=== PATIENT | male | born 1995 | race Caucasian/White ===

== ENCOUNTER 2016-10-17 12:25 | Emergency (ER) | payer MEDICAID ==
[~2016-10-17] VITALS: Ht 182.9 cm; Wt 86.4 kg
[2016-10-17 12:46] LABS: BASOPHILS % (AUTO) 1 % (0-2); EOSINOPHILS # (AUTO) 0.3 10^3uL; EOSINOPHILS % (AUTO) 4 % (0-4); MEAN CORPUSCULAR HEMOGLOBIN 30.4 PG (26.0-34.0); MEAN CORPUSCULAR HGB CONC 35.2 g/dL (31.0-37.0); MEAN CORPUSCULAR VOLUME 86 FL (80-100); MEAN PLATELET VOLUME 8.3 FL (6.0-9.5); MONOCYTES # (AUTO) 0.6 X10^3; MONOCYTES % (AUTO) 7 % (3-11); NEUTROPHILS # (AUTO) 4.4 X10^3; NEUTROPHILS % (AUTO) 52 % (51-67); PLATELET COUNT 274 10^3uL (150-450); WHITE BLOOD COUNT 8.42 10^3uL (4.0-11.0)
--- NOTE | 2016-10-17 12:55 | NUR ---
Patient still only responding to painful stimuli but was noted to cross his legs when this nurse telling mother about the ordered straight cath. Mother has said that mult staff were required to hold pt with previous cath attempt. Now pt pulling legs to chest and turning on side, and waving arms. With mothers consent and assistance, three staff additional staff required to hold pt while urinary bladder straight cathed by Bienvenido Greco RN. Urine specimen obtained for lab analysis. Pt calmed and relaxed when straight cath removed.
[2016-10-17 13:01] LABS: ALBUMIN 4.6 g/dL (3.4-5.0); ANION GAP 14.7 MEQ/L (3-15); CALCULATED IONIZED CALCIUM 3.8 mg/dL (3.8-4.6); TOTAL PROTEIN 7.8 g/dL (6.4-8.5)
[2016-10-17 13:09] LABS: BILIRUBIN,URINE Negative (Negative); CLARITY,URINE Clear; COLOR,URINE Yellow; GLUCOSE, URINE (UA) Negative (Negative); LEUKOCYTE ESTERASE ,URINE Negative (Negative); UROBILINOGEN,URINE 0.2 mg/dL (0.2-1.0)
--- NOTE | 2016-10-17 13:10 | NUR ---
Patient now alert, oriented, approp responses, joking with mother and his teacher. Mother reports pt suddenly was awake and interacting and says this not unusual post-seizure behavior for pt. Dr. Mendez notified of pt being awake and responding appropriately.
[2016-10-17 13:19] LABS: AMPHETAMINE SCREEN, URINE Negative (Negative); CANNABINOID SCREEN, URINE Negative (Negative); METHAMPHETAMINE SCREEN URINE S NEGATIVE (NEGATIVE); OPIATE SCREEN URINE Negative (Negative); PROPOXYPHENE STAT NEGATIVE (NEGATIVE)
[2016-10-17 19:40] VITALS: BP 134/95
== END 2016-10-17 13:41 | disposition home or self-care (01) ==
LOC: EDUNIT# 12:25 → ED 12:26
DX: R41.82 Altered mental status, unspecified (principal)
CPT/HCPCS: 36415; 51701; 80053; 80183; 81003; 85025; 99285; G0478; 80307; 99283

== ENCOUNTER → 2016-10-17 | Outpatient (CLI) | payer MEDICAID | LOC: EMS 12:18 | PROVIDERS: ATTEND Emergency Medicine | DX: R41.82 Altered mental status, unspecified (principal); G40.909 Epilepsy, unspecified, not intractable, without status epilepticus ==